=== PATIENT | female | born 1955 | race African-American/Black ===

== ENCOUNTER → 2019-12-08 | Outpatient (CLI) | payer MEDICARE | END | disposition home or self-care (01) | LOC: RADXRMAIN 15:29 | PROVIDERS: ATTEND Internal Medicine | DX: Z01.818 Encounter for other preprocedural examination (principal) | CPT/HCPCS: 93005 ==

== ENCOUNTER → 2020-06-29 | Outpatient (CLI) | payer MEDICARE ==
[2020-06-29 08:17] LABS: Calcium 9.7 mg/dL (8.4-10.2)
[2020-06-29 08:35] LABS: Potassium 4.5 mmol/L (3.5-5.1)
== END | disposition home or self-care (01) ==
LOC: RADCTMAIN 07:30
PROVIDERS: ATTEND Internal Medicine
DX: I10 Essential (primary) hypertension (principal)
CPT/HCPCS: 80048

== ENCOUNTER → 2020-07-16 | Outpatient (CLI) | payer MEDICARE ==
--- NOTE | 2020-07-16 10:09 | MR ---
EXAMINATION TYPE: MR pelvis wo/w con DATE OF EXAM: 07/16/2020 COMPARISON: None at this institution. HISTORY: Spot on ovaries per patient CONTRAST: Standard multiplanar, multisequence MRI departmental protocol utilizing 10 mL intravenous Gadavist ga dolinium contrast. Imaging performed of the pelvis. FINDINGS: There is anteverted uterus. Endometrial canal measures 3 mm in thickness which is within no rmal limits for a postmenopausal female. There is 3 mm round well-defined lesion of low signal in the posterior fundus could reflect focal calcification or tiny fibroid sagittal image 20. Slightly large r 4 mm round lesion anterior myometrium also noted suspect tiny intramural fibroid sagittal image 17. Cervix appears within normal limits. No free fluid in pelvic cul-de-sac. Left ovary is seen slightly higher in the pelvis axial image 25 with 10 mm partially exophytic lesion of T1 hyperintensity and T2 slight hypointensity suspicious for small proteinaceous or hemorrhagic c yst. No suspicious enhancing lesions are present. Right ovary is seen inferior to this adjacent to ut erus with larger oval 3.2 x 1.8 cm lesion of T2 hypointensity with slight T1 hyperintensity, there is diminished signal on fat saturation images. No suspicious postcontrast enhancement. Small amount of adjacent surrounding fluid and coronal images. No worrisome enhancing thickened septa or nodular comp onent. Some diverticula in the visualized proximal sigmoid colon. No suspicious bowel dilatation. Visualized osseous structures are intact. IMPRESSION: Suspect occasional tiny intrauterine fibroid. Left ovary suspect 9 mm hemorrhagic or prot einaceous cyst. Right ovary there is a larger 3.2 cm oval well-defined lesion with fat saturation wit hout suspicious enhancement favoring benign dermoid. Correlation with outside ultrasound and/or CT ad vised to confirm.
== END | disposition home or self-care (01) ==
LOC: RADMRIMAIN 06:20
PROVIDERS: ATTEND Internal Medicine
DX: N83.8 Other noninflammatory disorders of ovary, fallopian tube and broad ligament (principal)
CPT/HCPCS: 72197; A9585